=== PATIENT | male | born 1945 | race Caucasian/White ===

== ENCOUNTER 2022-02-16 10:11 | Outpatient (CLI) | payer MEDICARE ==
[~2022-02-16 10:11] MED LIST: Iopamidol 300 61% 100 ML VIAL FS ONE
== END 2022-02-16 10:12 | disposition home or self-care (01) ==
LOC: CSHCT 10:11
PROVIDERS: ATTEND Internal Medicine Critical Care Medicine
DX: R93.1 Abnormal findings on diagnostic imaging of heart and coronary circulation (principal); J92.9 Pleural plaque without asbestos; J98.4 Other disorders of lung; J98.11 Atelectasis
CPT/HCPCS: 71260; 82565; Q9967

== ENCOUNTER 2024-01-10 10:04 | Outpatient (CLI) | payer MEDICARE ==
[~2024-01-10 10:04] MED LIST changes: -Iopamidol 300 61% 100 ML VIAL FS ONE; +Iopamidol 370 76% 100 ML VIAL ONE
== END 2024-01-10 10:05 | disposition home or self-care (01) ==
LOC: CSHCT 10:04
PROVIDERS: ATTEND Internal Medicine Cardiovascular Disease
DX: I71.21 Aneurysm of the ascending aorta, without rupture (principal); R91.8 Other nonspecific abnormal finding of lung field
CPT/HCPCS: 71275; 82565; Q9967

== ENCOUNTER 2024-08-04 10:48 | Outpatient (CLI) | payer MEDICARE | END 2024-08-04 10:49 | disposition home or self-care (01) | LOC: CSHCP 10:48 | PROVIDERS: ATTEND Internal Medicine Critical Care Medicine | DX: J44.9 Chronic obstructive pulmonary disease, unspecified (principal); J98.4 Other disorders of lung | CPT/HCPCS: 94060; 94664; 94726; 94729; 94760 ==

== ENCOUNTER 2025-06-01 10:22 | Outpatient (CLI) | payer MEDICARE ==
[2025-06-01] MEDS ORDERED: Iopamidol 370 76% 100 ML VIAL ONE (11:07)
[2025-06-01 11:31] LABS: Estimated GFR - POC 77.0
== END 2025-06-01 10:23 | disposition home or self-care (01) ==
LOC: CSHCT 10:22
PROVIDERS: ATTEND Internal Medicine Cardiovascular Disease
DX: I77.810 Thoracic aortic ectasia (principal); R91.1 Solitary pulmonary nodule; I51.7 Cardiomegaly; J98.4 Other disorders of lung
CPT/HCPCS: 71275; 82565; Q9967